=== PATIENT | male | born 1955 | race Caucasian/White ===

== ENCOUNTER 2017-02-23 12:06 | Day surgery (SDC) | payer MEDICAID ==
[2017-02-23] MEDS ORDERED: ceFAZolin 1 GM in NORMAL SALINE MINI-BAG+ 100 ML IV SCH (12:12)
[2017-02-23] MEDS ORDERED: BUPIVACAINE HCL/PF 0.5% 30 ML VIAL ONE (13:13)
[2017-02-23] MEDS ORDERED: LIDOCAINE HCL 1% 20 ML VIAL ONE (13:14)
[2017-02-23 14:20] VITALS: RESP 16; TEMP 96.8
[2017-02-23 14:29] VITALS: BP 141/95; PULSE 64; O2SAT 95
--- NOTE | 2017-02-23 16:28 | OPERATIVE REPORT ---
DATE OF SURGERY: 02/23/17 SURGEON: Parish Beauchamp MD PREOPERATIVE DIAGNOSIS: Painful mass in the volar aspect of the right thumb. POSTOPERATIVE DIAGNOSIS: Painful mass in the volar aspect of the right thumb. PROCEDURE PERFORMED: Excisional biopsy. INDICATIONS FOR PROCEDURE: The patient is a 61-year-old male with a longstanding history of a mass on the volar aspect of the right dominant thumb. The mass occasionally became quite large, and although it had recently shrunk in size, it was very firm and painful when pushing on the thumb. He therefore desired excision. SUMMARY: After informed consent was obtained, we first injected the radial and ulnar digital nerves at the level of the distal thumb metacarpal under sterile prep, using a mixture of 1% lidocaine and 0.5% Marcaine. This yielded anesthesia of the thumb, after which the hand and thumb were prepped and draped in the usual sterile fashion. A digital tourniquet was then used, and an oblique incision was performed across the volar aspect of the thumb. The underlying soft tissue was sharply but very gently dissected to reveal the underlying soft tissue mass. Care was taken to preserve the neurovascular bundles. Once the mass was identified it was carefully dissected of its soft tissue attachments to which it was only very lightly attached. There was no evidence of any invasive characteristic of the mass. The mass was then passed off as specimen. The wound was then irrigated with copious amounts of sterile saline and the skin was closed using 4-0 nylon in an interrupted fashion. A sterile gauze dressing was then applied. The patient tolerated the procedure well and was taken to the recovery room in stable condition. ESTIMATED BLOOD LOSS: Minimal. FLUIDS: The patient did not receive any intraoperative fluids. TOURNIQUET TIME: 19 minutes. WISAM
--- NOTE | 2017-03-05 13:47 | PREOPERATIVE H&P ---
History of Present Illness (Parish Beauchamp MD; 02/22/2017 3:23 PM) The patient is a 61 year old male. The patient is here for his preoperative evaluation as he is scheduled for excision of a mass from his right thumb. 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 Tobacco use Never smoker. Alcohol use Drinks Rarely. 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 TraMADol HCl (50MG Tablet, 1 - 2 Tablet Oral QHS prn pain, Taken starting 01/07) Discontinued. Depo-Testosterone (200MG/ML Solution, 1 Intramuscular qmo, Taken starting 01/07) Active. ZyrTEC Allergy (10MG Capsule, Oral prn) Active. Medications Reconciled Past Surgical History (Parish Beauchamp MD; 02/22/2017 3:23 PM) Rt ACL surgery Health Maintenance History (Parish Beauchamp MD; 02/22/2017 3:23 PM) ETT Patient Declines DEXA Patient Declines Colonoscopy 2007, Repeat due in 2012 Other Problems (Parish Beauchamp MD; 02/22/2017 3:23 PM) Felon (L03.019) History of colon polyps (Z86.010) Review of Systems (Devi Farrell RN; 02/22/2017 2:55 PM) General Not Present- Chills and Fever. Skin Not Present- Erythema, Skin Color Changes and Skin Problems. HEENT Not Present- Sleep Apnea. Neck Not Present- Neck Pain. Respiratory Not Present- Cough and Shortness of Breath. Cardiovascular Not Present- Chest Pain, Difficulty Breathing On Exertion, Fainting and Leg Pain and/or Swelling. Gastrointestinal Not Present- Abdominal Pain, Nausea and Vomiting. Male Genitourinary Not Present- Painful Urination and Urethral Discharge. Musculoskeletal Not Present- Decreased Range of Motion, Joint Pain, Joint Stiffness, Joint Swelling, Muscle Pain and Muscle Weakness. Neurological Not Present- Dizziness, Focal Neurological Symptoms, Numbness in extremities, Trouble walking and Weakness. Psychiatric Not Present- Anorexia, Anxiety and Depression. Endocrine Not Present- Weight Loss. Hematology Not Present- Bleeding Problems, DVT and Easy Bruising. Vitals (Devi Farrell RN; 02/22/2017 2:54 PM) 02/22/2017 2:53 PM Weight: 177 lb Height: 74.5in Weight was reported by patient. Body Surface Area: 2.07 m Body Mass Index: 22.42 kg/m Temp.: 97.9F Pulse: 76 (Regular) Resp.: 16 (Unlabored) BP: 126/82 (Sitting, Left Arm, Standard) Physical Exam (Parish Beauchamp MD; 02/22/2017 3:24 PM) Musculoskeletal Physical examination today reveals the mass has decreased in size considerably. It is firm and round, and now about 3-4 mm in diameter. It is only very mildly tender to palpation. Assessment & Plan (Parish Beauchamp MD; 02/22/2017 3:26 PM) Soft tissue mass (M79.9) Impression: Right Thumb Assessment: Soft tissue mass of the right thumb which at this point in time since most likely consistent with a ganglion cyst of the tendon sheath. Plan: He is scheduled for excision of the mass tomorrow. Today we discussed the operation, risks, and indications. The risks of the procedure including but not limited to: Infection, blood vessel or nerve injury, persistent pain or stiffness in the thumb, or recurrence of the mass. The patient has acknowledged the risks and desires to proceed as planned. Signed by Parish Beauchamp MD (02/22/2017 3:26 PM) WISAM
== END 2017-02-23 14:40 | disposition home or self-care (01) ==
LOC: SDS 12:06
PROVIDERS: ATTEND Orthopaedic Surgery
DX: M79.89 Other specified soft tissue disorders (principal)
CPT/HCPCS: 88307